=== PATIENT | female | born 1995 | race Caucasian/White ===

== ENCOUNTER 2017-11-05 16:32 | Emergency (ER) | payer MEDICAID ==
[2017-11-05] MEDS ORDERED: Lactated Ringers 1,000 ML IV SCH ×2 (16:45)
[2017-11-05] MEDS: Sodium Chloride 0.9% 1,000 ML IV SCH ×2 (17:00→17:15)
--- NOTE | 2017-11-05 17:07 | EDM.PDOC ---
ED HPI GENERAL MEDICAL PROBLEM - General Chief Complaint: Lower Extremity Injury/Pain Stated Complaint: WENT THRU THE WINDOW Time Seen by Provider: 11/05/17 16:40 Source of Information: Reports: Patient, EMS History Limitations: Reports: No Limitations - History of Present Illness INITIAL COMMENTS - FREE TEXT/NARRATIVE: 22 yo female here via EMS after putting her R leg through a glass door. Had an estimated 500+ ml of blood loss at the scene. Arrives via EMS with a tournaquet on her R leg and hemostasis achieved. Patient is 10 weeks . Blood type O -. Last tetanus 05/24. EMS activated a trauma code from the field and called for air transport. Patient prefers [facility] as a transfer destination. Onset: Today Onset Date: 11/05/17 Onset Time: 16:00 Duration: Minutes:, Improving (bleeding controlled.) Location: Reports: Lower Extremity, Right Quality: Reports: Sharp Severity: Moderate Improves with: Reports: Other (pressure over artery) Worsens with: Reports: None Context: Reports: Trauma Associated Symptoms: Reports: No Other Symptoms Treatments [employer]: Reports: Other (see below) (local dressing, tourniquet) - Related Data Allergies Allergy/AdvReac Type Severity Reaction Status Date / Time No Known Allergies Allergy Verified 11/22/14 22:13 Home Meds: Home Meds Dextroamphetamine/Amphetamine [Adderall] 1 tab PO DAILY 11/22/14 [History] Ethinyl Estradiol/Etonogestrel [Nuvaring Vaginal Ring] 1 dose VAG ASDIRECTED [History] Social & Family History - Tobacco Use Smoking Status *Q: Light Tobacco Smoker Years of Tobacco use: 1 Month/Year Tobacco Last Used: August Second Hand Smoke Exposure: No - Alcohol Use Days Per Week of Alcohol Use: 0 - Recreational Drug Use Recreational Drug Use: No Review of Systems - Review of Systems Review Of Systems: See Below Constitutional: Reports: No Symptoms Cardiovascular: Reports: No Symptoms Genitourinary: Reports: Other (10 weeks ) Skin: Reports: Wound (3 lacerations to right lower extrem with one of them including an arterial laceration. ) Neurological: Reports: No Symptoms Psychiatric: Reports: No Symptoms ED EXAM, GENERAL - Physical Exam Exam: See Below Exam Limited By: No Limitations General Appearance: Alert, WD/WN, No Apparent Distress, Obese Respiratory/Chest: No Respiratory Distress, Lungs Clear, Normal Breath Sounds, No Accessory Muscle Use Cardiovascular: Regular Rate, Rhythm, No Edema Extremities: Other (lacerations to the distal R leg) Neurological: Alert, Oriented, CN II-XII Intact, Normal Cognition, No Motor/ Sensory Deficits Psychiatric: Normal Affect, Normal Mood Skin Exam: Warm, Dry, Normal Color, No Rash, Wound/Incision (3 distinct lacerations to the R distal leg. There is a 3 inch laceration medially, a 1 inch medial leg laceration and a 3/4 inch posterior laceration. None are bleeding when the leg is undressed and the tourniquet taken down. Doppler of the dorsalis pedis artery is intact, but there is no discernible posterior tibialis pulse. ) Lymphatic: No Adenopathy Course - Vital Signs Text/Narrative:: Her wounds were redressed, 2 peripheral IV's were started with LR [facility] was contacted and acceptance was achieved. Since air transport was already on the ground shortly after arrival and no ground EMS available for over 30 minutes the decision was made to fly her. - Orders/Labs/Meds Orders: Active Orders 24 hr Category Date Time Status BASIC METABOLIC PANEL,BMP [CHEM] Stat Lab 11/05/17 16:41 Received Lactated Ringers [Ringers, Lactated] 1,000 ml Med 11/05/17 16:45 Active IV ASDIRECTED Lactated Ringers [Ringers, Lactated] 1,000 ml Med 11/05/17 16:45 Active IV ASDIRECTED Medication Orders Lactated Ringer's (Ringers, Lactated) 1,000 mls @ 150 mls/hr IV ASDIRECTED KEYON Lactated Ringer's (Ringers, Lactated) 1,000 mls @ 150 mls/hr IV ASDIRECTED KEYON Labs: Laboratory Tests 11/05/17 Range/Units 16:41 WBC 10.6 (4.5-11.0) K/uL RBC 4.28 (3.30-5.50) M/uL Hgb 12.5 (12.0-15.0) g/dL Hct 35.6 L (36.0-48.0) % MCV 83 (80-98) fL MCH 29 (27-31) pg MCHC 35 (32-36) % Plt Count 300 (150-400) K/uL Meds: Medications Generic Name Dose Route Start Last Admin Trade Name Cecilia PRN Reason Stop Dose Admin Lactated Ringer's 1,000 mls @ 150 mls/hr 11/05/17 16:45 Ringers, Lactated IV ASDIRECTED KEYON Lactated Ringer's 1,000 mls @ 150 mls/hr 11/05/17 16:45 Ringers, Lactated IV ASDIRECTED KEYON Departure - Departure Time of Disposition: 17:14 Disposition: DC/Tfer to Acute Hospital 02 Condition: Fair Clinical Impression: Laceration of artery, First trimester Lower leg laceration with complication Qualifiers: Encounter type: initial encounter Laterality: right Qualified Code(s): S81.811A - Laceration without foreign body, right lower leg, initial encounter - Discharge Information Referrals: PCP,None [Primary Care Provider] - Forms: ED Department Discharge - My Orders Last 24 Hours: My Active Orders 11/05/17 16:41 BASIC METABOLIC PANEL,BMP [CHEM] Stat 11/05/17 16:45 Lactated Ringers [Ringers, Lactated] 1,000 ml IV ASDIRECTED Lactated Ringers [Ringers, Lactated] 1,000 ml IV ASDIRECTED - Assessment/Plan Last 24 Hours: My Active Orders 11/05/17 16:41 BASIC METABOLIC PANEL,BMP [CHEM] Stat 11/05/17 16:45 Lactated Ringers [Ringers, Lactated] 1,000 ml IV ASDIRECTED Lactated Ringers [Ringers, Lactated] 1,000 ml IV ASDIRECTED
[2017-11-05 18:04] VITALS: BP 128/76
[2017-11-05] MEDS ORDERED: Sodium Chloride 0.9% 1,000 ML IV SCH (18:30)
== END 2017-11-05 17:15 ==
LOC: JP.ED 16:32
DX: O9A.211 Injury, poisoning and certain other consequences of external causes complicating pregnancy, first trimester (principal); S81.811A Laceration without foreign body, right lower leg, initial encounter; Z3A.10 10 weeks gestation of pregnancy; W25.XXXA Contact with sharp glass, initial encounter
CPT/HCPCS: 36415; 80048; 85027; 99284; 99285; J7040